=== PATIENT | male | born 1970 | race Caucasian/White ===

== ENCOUNTER 2021-06-02 01:38 | Emergency (ER) | payer SELFPAY | END 2021-06-02 05:04 | disposition home or self-care (01) | LOC: ER1 01:38 | DX: S90.32XA Contusion of left foot, initial encounter (principal); S90.31XA Contusion of right foot, initial encounter; E11.9 Type 2 diabetes mellitus without complications; I10 Essential (primary) hypertension; W20.8XXA Other cause of strike by thrown, projected or falling object, initial encounter | CPT/HCPCS: 73630; 99283 ==

== ENCOUNTER 2021-07-03 12:00 | Emergency (ER) | payer SELFPAY ==
[2021-07-03] MEDS ORDERED: IBUPROFEN600 MG PO (13:52)
== END 2021-07-03 14:27 | disposition home or self-care (01) ==
LOC: ER1 12:00
DX: M20.012 Mallet finger of left finger(s) (principal); W20.8XXA Other cause of strike by thrown, projected or falling object, initial encounter
CPT/HCPCS: 73140; 99283